=== PATIENT | female | born 1930 | race Caucasian/White ===

== ENCOUNTER → 2017-05-03 | Outpatient (CLI) | payer MEDICARE ==
[~2017-05-03] MED LIST: ASPIRIN DELAYE325 MG PO; ASPIRIN E.C.325 MG PO; ASPIRIN125 MG PO; BACTRIM DS 8001 TA1 PO; CENTRUM SILVER1 TA1 PO; CLOBETASOL0.051 TD; COUMADIN1 MG PO; Coumadin2.5 MG PO; DAYPRO600 M1 PO; DIABETA5 MG PO; DOXY 100100 MG PO; ELIQUIS5 M1 PO; FLUCONAZOLE100 MG PO; GLIMEPIRIDE2 MG PO; HEPARIN5000 UNIT/ SC; HYDROCODONE BIT1 T11 PO; K-TAB20 MEQ PO; KEFLEX500 MG PO; LANTUS SOLOS100 U/M1 SC; LANTUS100 U/ML SC; LASIX40 MG PO; LIDEX 0.05% OIN15 GM T; LIPITOR10 MG PO; LIPITOR40 MG PO; LOTENSIN10 MG PO; LOTENSIN5 MG PO; LUMIGAN 2.5 ML2.5 ML OPH; LUMIGAN50 DRP OPH; Lortab 5/500 501 TAB PO; MAG-OX 400400 MG PO; MEDROL DOSEPAK4 MG PO; MELATONIN5 M1 PO; MELATONIN5 M1 SL; MICRO-K LS20 MEQ PO; MINOCYCLINE100 MG PO; MIRALAX POWDER17 G1 PO; MIRALAX POWDER255 G1 PO; MIRALAX POWDER255 GM PO; NIACINAMIDE500 M1 PO; NIZATIDINE300 MG PO; PEPCID40 MG PO; TRIAMTERENE W/H1 TA1 PO; VICODIN 500 MG-1 TAB PO; VISTARIL25 M1 PO; VISTARIL25 M2 PO; VITAMIN B COMPL1 CAP PO; VITAMIN D1000 IU PO; VITAMIN E400 UNI2 PO; XALATAN 0.005%2.5 ML INTRAOC; XARE15TA PO; [UNRECOGNIZED DRUG - CODE] SC; [UNRECOGNIZED DRUG - OTHER] PO
[2017-05-03 16:34] LABS: BILIRUBIN NEGATIVE (NEGATIVE); BLOOD NEGATIVE (NEGATIVE); CLARITY CLOUDY (CLEAR); COLOR YELLOW (YELLOW); GLUCOSE NEGATIVE (NEGATIVE); KETONE NEGATIVE (NEGATIVE); LEUKO ESTERASE 1+ (NEGATIVE); NITRITE POSITIVE (NEGATIVE); SPECIFIC GRAVITY 1.015 (1.005-1.030); UROBILINOGEN 0.2 E.U./dl (0.2-1.0)
[2017-05-03 16:48] LABS: RBC 0-2 rbc/hpf (0-2); WBC 21-30 wbc/hpf (0-5)
[2017-05-03 16:49] LABS: BACTERIA 4+; EPITHELIAL CELLS 20-25; MUCOUS TRACE
== END | disposition home or self-care (01) ==
LOC: LAB 15:55
PROVIDERS: Family Medicine
DX: N30.90 Cystitis, unspecified without hematuria (principal); E11.9 Type 2 diabetes mellitus without complications; E78.00 Pure hypercholesterolemia, unspecified

== ENCOUNTER 2017-06-25 21:34 | Inpatient (IN) | payer MEDICARE ==
[~2017-06-25] VITALS: Ht 167.6 cm; Wt 74.6 kg
[~2017-06-25 21:34] MED LIST changes: +LANTUS SOL100 UNIT/1 SQ; -LANTUS SOLOS100 U/M1 SC
[2017-06-25 21:40] VITALS: BP 124/36
[2017-06-25 22:13] LABS: BASO % 0.5 % (0.0-1.0); EOS # 0.8 10*3/uL (0.0-0.4); EOS % 9.4 % (1.0-4.0); HEMATOCRIT 33.3 % (37.0-47.0); HEMOGLOBIN 10.4 g/dl (12.0-16.0); LYMPH # 1.3 10*3/uL (1.3-4.4); LYMPH % 14.4 % (27.0-41.0); MEAN CELL VOLUME 103.1 fl (81.0-99.0); MEAN CORPUSCULAR HGB 32.2 pg (27.0-31.0); MEAN CORPUSCULAR HGB CONC 31.2 g/dl (33.0-37.0); MEAN PLATELET VOLUME 9.7 fl (9.6-12.3); MONO # 0.9 10*3/uL (0.1-1.0); MONO % 10.1 % (3.0-9.0); NEUT # 5.7 10*3/uL (2.3-7.9); NEUT % 65.3 % (47.0-73.0); PLATELET COUNT AUTOMATED 222 10*3/uL (130-400); RED BLOOD COUNT 3.23 10*6/uL (4.10-5.10); RED CELL DISTRI WIDTH 13.9 % (0-14.5); WHITE BLOOD COUNT 8.7 10*3/uL (4.8-10.8)
[2017-06-25 22:31] LABS: ALBUMIN 3.3 gm/dl (3.1-4.5); ALKALINE PHOSPHATASE 99 U/L (45-117); BUN 40 mg/dl (7-24); CHLORIDE 104 mmol/L (98-107); CREATININE 1.92 mg/dL (0.55-1.02); POTASSIUM 4.7 mmol/L (3.5-5.1); SGOT/AST 16 IU/L (3-35); SGPT/ALT 17 U/L (12-78); SODIUM 141 mmol/L (136-145); TOTAL PROTEIN 7.2 gm/dL (6.4-8.2); TROPONIN I < 0.015 ng/ml (<0.045)
[2017-06-25 23:03] LABS: BILIRUBIN NEGATIVE (NEGATIVE); BLOOD NEGATIVE (NEGATIVE); CLARITY CLEAR (CLEAR); COLOR YELLOW (YELLOW); GLUCOSE NEGATIVE (NEGATIVE); KETONE NEGATIVE (NEGATIVE); LEUKO ESTERASE NEGATIVE (NEGATIVE); NITRITE NEGATIVE (NEGATIVE); UROBILINOGEN 0.2 E.U./dl (0.2-1.0)
[2017-06-25 23:09] LABS: BACTERIA 1+; RBC 0-2 rbc/hpf (0-2)
--- NOTE | 2017-06-25 23:57 | NUR ---
A 86, admitted to , under the services of ANA Weaver DO with a diagnosis of CELLULITIS. Chief complaint is SWELLING, PAIN AND WOUND LOWER EXTREMITIES. Patient arrived via ambulance from ER. Monitor applied. Initial assessment completed. Vital signs taken and recorded. ANA WEAVER DO notified of admission to the unit. Orders received. See assessment for past medical history, medications and allergies. Patient and/or family oriented to unit. [facility] visitation policy reviewed. Clothing/patient valuable form completed. CHRISTINA COOLEY
[2017-06-26 00:25] VITALS: BP 140/47
[2017-06-26 06:36] LABS: BASO % 0.6 % (0.0-1.0); EOS # 0.7 10*3/uL (0.0-0.4); EOS % 9.3 % (1.0-4.0); HEMATOCRIT 30.4 % (37.0-47.0); HEMOGLOBIN 9.3 g/dl (12.0-16.0); LYMPH # 1.7 10*3/uL (1.3-4.4); LYMPH % 24.3 % (27.0-41.0); MEAN CELL VOLUME 102.4 fl (81.0-99.0); MEAN CORPUSCULAR HGB 31.3 pg (27.0-31.0); MEAN CORPUSCULAR HGB CONC 30.6 g/dl (33.0-37.0); MEAN PLATELET VOLUME 9.8 fl (9.6-12.3); MONO # 0.9 10*3/uL (0.1-1.0); MONO % 12.9 % (3.0-9.0); NEUT # 3.7 10*3/uL (2.3-7.9); NEUT % 52.8 % (47.0-73.0); PLATELET COUNT AUTOMATED 209 10*3/uL (130-400); RED BLOOD COUNT 2.97 10*6/uL (4.10-5.10); WHITE BLOOD COUNT 7.1 10*3/uL (4.8-10.8)
[2017-06-26 07:05] LABS: CREATININE 1.8 mg/dL (0.55-1.02); PHOSPHOROUS 2.9 mg/dL (2.5-4.9); POTASSIUM 4.5 mmol/L (3.5-5.1)
[2017-06-26 07:15] LABS: FREE T4 1.02 ng/dl (0.76-1.46); THYROID STIM HORMONE (HS) 6.9 uIU/ml (0.358-4.75)
[2017-06-26 07:36] LABS: VITAMIN D, 25-HYDROXY 29.2 ng/mL (30-100)
[2017-06-26 08:00] VITALS: BP 135/50
--- NOTE | 2017-06-26 09:00 | NUR ---
Photographic Printer in to talk to patient. Patient states lives at home with . There are few steps in the home. Physician: rafal [facility]acy: [facility] Home health services: none Patient's level of ADLs: MAX ASSIST Patient has working utilities: all working DME: wheelchair, walker, hospital bed and bedside commode Follow-up physician's appointment after d/c: will be made by hospitalist nurse director upon discharge Does patient want to access PORTAL?: no Discharge plan discussed with patient, patient lives at home with her , she stated she uses a wheelchair to get around she uses a walker to transfer to the wheelchair, discussed with her a discharge plan and she stated she would be going back home, discussed with her VNA and she was receptive to this, she stated she had used [facility] in the past and would like them again, transportation planner will make referral to [facility] for when patient is medically stable for discharge. YOUSIF CALVERT
--- NOTE | 2017-06-26 11:10 | NUR ---
WOUND NURSES ON FLOOR. STATED THEY WILL BE SPEAKING TO THE DOCTOR REGARDING ORDERS NEEDED FOR DRESSING CHANGES AND MEDICATION TO PATIENTS BUTTOCKS. AWAITING NEW ORDERS
[2017-06-26 12:00] VITALS: BP 136/43
--- NOTE | 2017-06-26 14:54 | NUR ---
KATHYA MCKEON [id number] Please refer to the physician's history and physical for past medical history, comorbid conditions, and allergies. Diagnosis: CELLULITIS Rubens Score: 16,AT RISK WOUND DESCRIPTIONS: Location of the wound: right lower leg Thickness: Full Size: 3.1cm x 1.5cm 0.2cm Tunneling: none Undermining: none Sinus Tract: none Presence of Exudate: SerouSanguineous Amount: Moderate Color: Yellow Odor: None Periwound Skin Appearance: Normal Wound edges: approximated Pain (associated with wound): patient denied at time of assessment How does patient state this happened? patient states the area was a blister and has been open for approximately 10 days Patient's bilateral upper posterior upper legs dark red in color. These areas yobani at time of assessment. Location of the wound: right heel Type of wound: stage 1 Size: 1cm x 1cm x <0.1 Tunneling: none Undermining: none Sinus Tract: none Presence of Exudate: Amount: None Color: Red Odor: None Periwound Skin Appearance: Normal Wound edges: closed Pain (associated with wound): patient states tender to touch How does patient state this happened? patient is unsure how this happened Surface the patient is resting on: Position Pro SKIN PREVENTION RECOMMENDATION: 1. Pressure redistribution support surface as appropriate 2. Elevate heels 3. Remove boots/TEDS every shift and reapply 4. Head of bed 30 degrees as tolerated 5. Assess nutrition and hydration 6. Manage moisture 7. Avoid the use of containment devices while in bed 8. Use absorptive products on surfaces limit layers of linens on bed 9. Turn and reposition every 1-2 hours in bed and every 1 hour in chair as tolerated 10. Weight shifts every 15 minutes while up in chair 11. Offloading with pillows or device to keep heels elevated off bed 12. Monitor skin at least every shift 13. Inspect under medical devices twice a day WOUND TREATMENT RECOMMENDATIONS: Consult Dr. Cedeno for possible debridement of right lower leg wound Cleanse right lower leg wound with NS. Apply sureprep to periwound and allow to dry and apply therahoney and maxorb and dry dressing. Apply calazime to buttocks daily and PRN. Heel raiser pro boots when in bed. Wheelchair cushion when out of bed.
[2017-06-26 16:31] VITALS: BP 140/68
--- NOTE | 2017-06-26 16:31 | NUR ---
RECHECKED BLOOD PRESSURE SITTING UP ON BSC, SEE VS'S FLOW.
--- NOTE | 2017-06-26 17:17 | NUR ---
LEFT MESSAGE ON DR. CRUZ'S CELL PHONE RE: CONSULT RE: RLE POSSIBLE DEBRIDEMENT.
--- NOTE | 2017-06-26 17:50 | NUR ---
MEDICATED WITH PRN PO TYLENOL FOR BILATERAL SHOULDERS PAIN, APPLIED TOPICAL ANALGESIC BALM, APPLIED HEEL PROTECTORS, AND STARTED PO MIRALAX ORDERED FOR CONSTIPATION.
--- NOTE | 2017-06-26 18:30 | NUR ---
PRN PO TYLENOL EFFECTIVE, PER PATIENT.
[2017-06-26 20:00] VITALS: BP 131/49
--- NOTE | 2017-06-26 20:00 | NUR ---
ASSUMED CARE OF PATIENT. ASSESSMENT COMPLETE. RESTING IN BED. DENIES FURTHER NEEDS AT THIS TIME. CALL LIGHT IN REACH. WILL CONTINUE TO MONITOR.
--- NOTE | 2017-06-26 22:30 | NUR ---
PER PATIENT, EARLIER TYLENOL EFFECTIVE
--- NOTE | 2017-06-26 23:31 | NUR ---
PT DRESSING TO RLE SOILED. DRESSING CHANGED PER ORDER AT THIS TIME.
[2017-06-27] VITALS: BP 144/44
--- NOTE | 2017-06-27 02:00 | NUR ---
SLEEPING. RESP EASY AND NONLABORED ON ROOM AIR. NO DISTRESS NOTED. CALL LIGHT IN REACH. WILL CONTINUE TO MONITOR.
[2017-06-27 06:34] LABS: BASO # 0.1 10*3/uL (0.0-0.1); BASO % 0.7 % (0.0-1.0); EOS # 0.8 10*3/uL (0.0-0.4); EOS % 11.3 % (1.0-4.0); HEMATOCRIT 30.8 % (37.0-47.0); HEMOGLOBIN 9.5 g/dl (12.0-16.0); LYMPH # 1.8 10*3/uL (1.3-4.4); MEAN CELL VOLUME 104.8 fl (81.0-99.0); MEAN CORPUSCULAR HGB 32.3 pg (27.0-31.0); MEAN CORPUSCULAR HGB CONC 30.8 g/dl (33.0-37.0); MEAN PLATELET VOLUME 9.3 fl (9.6-12.3); MONO # 0.9 10*3/uL (0.1-1.0); MONO % 12.9 % (3.0-9.0); NEUT # 3.4 10*3/uL (2.3-7.9); NEUT % 48.8 % (47.0-73.0); PLATELET COUNT AUTOMATED 194 10*3/uL (130-400); RED BLOOD COUNT 2.94 10*6/uL (4.10-5.10); WHITE BLOOD COUNT 6.9 10*3/uL (4.8-10.8)
--- NOTE | 2017-06-27 06:36 | NUR ---
PT DRESSING SOILED, CHANGED PER ORDER
[2017-06-27 06:46] LABS: CREATININE 1.81 mg/dL (0.55-1.02); POTASSIUM 4.4 mmol/L (3.5-5.1)
--- NOTE | 2017-06-27 06:58 | NUR ---
1 AMP D5W GIVEN PER ORDER FOR BS 43
--- NOTE | 2017-06-27 07:56 | NUR ---
Received message to [facility] Faxed referral to [facility], will need PT and OT eval for precert. waiting on acceptance, PT and OT evals.
[2017-06-27 08:00] VITALS: BP 140/48
--- NOTE | 2017-06-27 09:07 | NUR ---
PHYSICAL THERAPY PAtient evaluated on 4, full evaluation to follow. Continue with PT as per plan of care with fall and acute debility precautions. May require SNF for impaired mobility in order to return to home at [facility]. PAtient is moderate complexity via chart review, tests and evaluation: [id number]. Thank you for this referral. Kenya Campuzano,PT
--- NOTE | 2017-06-27 09:14 | NUR ---
Occupational Therapy evaluation completed this date on 4 with full eval to follow. Precautions include IV LUE, BLE cellulitis, fall risk. Recommend OT per POC, SNF upon d/c to enable safe return home at improved level of ADLs and safety. Thank you for this referral. Varsha Díaz OTR/l
[2017-06-27] MEDS ORDERED: LOTENSIN20 MG PO (09:29)
[2017-06-27 12:00] VITALS: BP 131/47
--- NOTE | 2017-06-27 12:26 | NUR ---
PHYSICAL THERAPY Mrs Villalba seen this PM 1:1 for her therapy session. Transfer supine/sit making Elis work with MIN A X 1, sitting balance once up supervision X 1. SIt/stand MAX A X 1, up standing with wheeled walker MIN A X 1. Gait total 42' X 1, MIN PAPER COLORER X 1, with W/W with verbal cueing for gait, walker safety. Pt back supine MOD A X 1. After short rest act Ex to bilateral LE of SLR, quad sets, anklke pumps with cueing for each Ex X 15 reps each and Elis knows she is weak in bilateral LE. Said that she will be working more on them. CAROLE CROFT BRAND COORDINATOR.
[2017-06-27 16:00] VITALS: BP 137/40
[2017-06-27 20:00] VITALS: BP 145/48
--- NOTE | 2017-06-27 20:25 | NUR ---
UP WITH ASSISTANCE TO BSC.
--- NOTE | 2017-06-27 22:00 | NUR ---
BLOOD SUGAR 107; NO COVERAGE REQUIRED.
[2017-06-28] VITALS: BP 154/48
[2017-06-28 05:55] LABS: CREATININE 1.75 mg/dL (0.55-1.02); POTASSIUM 4.5 mmol/L (3.5-5.1)
[2017-06-28 05:57] LABS: VANCOMYCIN TROUGH 12.3 ug/mL (10-20)
[2017-06-28 08:00] VITALS: BP 132/40
--- NOTE | 2017-06-28 11:02 | NUR ---
PHYSICAL THERAPY Pt seen 1:1 for her therapy session this AM. Transfer SIT/STAND from bedside to W/W requiring MOD A x 1 and verbal cues for proper hand and foot placement upon standing. Pt performed transfer to bedside commode using W/W and Min A x 1. Gait 40'x1 using W/W and CGA for safety. B LE ther ex; SLR, quad sets, marches, ankle pumps x 15 each. Pt required cueing for proper sequence during exercise. Pt was left seated with call light in reach and registered nursing professor present. Cheryl Velásquez, PAPERBOARD MACHINE OPERATOR
--- NOTE | 2017-06-28 15:53 | NUR ---
OT DAILY NOTE PT SEENTHIS DATE FOR 33 MINUTES OF OT. PT WAS SITTING IN CHAIR BESIDE BED WHEN FRIAS ENTERED THE ROOM. C/O PAIN IN L SHOULDER AND RLE, BUT AGREED TO PARTICIPATE. FRIAS REVIEWED HAND OUT WITH PATIENT ON EC/WS AND PATIENT REPORTED DOING MOST OF THE SUGGESTIONS ALREADY. PT HAS DME AND AE AT HOME SUCH RIGHT OF WAY APPRAISER, SOCK AID AND TUB CHAIR. FRIAS ACILITATED BUE STRENGTHENING EXERCISES IN ALL PLANES TOLERATED WITH MED RESISTANCE TBAND 10X EACH WITH MIN ASSIST FOR CORRECT FORM AND TECHNIQUE FOR PATIENT TO ACHEIVE MAXIMUM BENEFIT. FAIR TOLERANCE, VERBAL CUES FOR BREATHING. STS X 3 TRIALS FROM CHAIR WITH ARMS AT MAX A WITH PATIENT UNABLE TO STAND ALL OF THE WAY UP. STS FROM CHAIR WITH MOD A X 2 AT FWW. FUNCTIONAL MOBILITY HTORUGH OUT ROOM AND HALLWAY WITH FWW AT [facility]. PT RETURNED TO SIT AT EOB WITH VERBAL CUES FOR HAND PLACEMENT TO SIT. PT SAT AT EOB WITH CALL LIGHT WITH IN REACH. CONTINUE CURRENT OT PLAN OF CARE. KEON AUSTIN, ALTAGRACIA/Robyn
[2017-06-28 16:00] VITALS: BP 151/54
[2017-06-28 20:00] VITALS: BP 148/56
--- NOTE | 2017-06-28 20:20 | NUR ---
PT. IS CURRENTLY RESTING IN BED AT THIS TIME. NO DISTRESS NOTED AND PT. DOES NOT VERBALIZE ANY C/O AT THIS TIME. HOB IS ELEVATED, CALL LIGHT WITHIN REACH, BED IS LOW AND WHEELS ARE LOCKED. SEE SHIFT ASSESSMENT.
--- NOTE | 2017-06-28 21:28 | NUR ---
PT. MEDICATED WITH TYLENOL FOR A HEADACHE RATING PAIN A 5/10. WILL MONITOR EFFECT.
--- NOTE | 2017-06-28 22:00 | NUR ---
PRN TYLENOL SEEMS EFFECTIVE, PT. IS SLEEPING COMFORTABLY WITH NO DISTRESS NOTED. CALL LIGHT IS WITHIN REACH.
[2017-06-29] VITALS: BP 122/52
--- NOTE | 2017-06-29 07:56 | NUR ---
ASSESSMENT DONE - PER THE PATIENT SHE STILL HAS NOT MOVED HER BOWELS & SHE WOULD LIKE ANOTHER DULCOLAX TABLET.
[2017-06-29 08:00] VITALS: BP 130/70
--- NOTE | 2017-06-29 08:01 | NUR ---
Shift chart check completed.
[2017-06-29 09:27] LABS: CREATININE 1.66 mg/dL (0.55-1.02); POTASSIUM 4.4 mmol/L (3.5-5.1)
--- NOTE | 2017-06-29 09:42 | NUR ---
PHYSICAL THERAPY Elis was seen this AM 1:1 for her therapy session and is improving. Transfer supine/sit MOD A X 1, sitting balance once up independent. Sit/stand and up on wheeled walker with bed elevated to transfer up into stand MOD A X 1. Gait total 55' X 2, MOD DENTAL HYGIENIST X 1, with cueing for gait, walker, turn and distance safety. Pt back sitting at bedside to rest a little SOB with this. End with act SLR, quad sets, ankle pumps, and working more with her act quad sets to get to independent transfers. CAROLE CROFT FREELANCE DATA ENTRY.
--- NOTE | 2017-06-29 10:04 | NUR ---
PATIENT SEEN 1:1 OT THIS DATE 38 MINUTES. PATIENT IDENTIFIED BY NAME AND DATE OF . PATIENT COMPLETED SUPINE TO SIT EOB MODA A WITH EDUCATION USE RAIL AND LOG ROLL TECHNIQUE FOR INCREASE SAFETY AND INDEPENDENCE. PATIENT COMPLETED GROOMING SIT EOB GOOD SIT BALANCE BRUSH DENTURES, COMB HAIR, AND APPLE MAKE UP MOD A SECONDARY ROM LIMITATIONS AND C/O SORENESS LEFT ARM IV SITE. PATIENT COMPLETED SIT TO STAND FROM BED MIN A RAISED AND PIVOTING USE FWW TO BEDSIDE COMMODE MIN A WITH VERBAL CUE SAFETY. PATIENT COMPLETED LB DRESSING DEP CHRISTA NONSLIP SOCKS AND MAX A CHRISTA UNDERPANTS WITH EDUCATION AE FOR INCREASE I WITH TASK. PATIENT COMPLETED TOILETING MOD A AND SIT TO STAND FORM BEDSIDE COMMODE MAX A. COMPLETED PIVOT USE FWW TO BED MIN A. PATIENT COMPLETED SIT TO SUPINE MOD A WITH VERBAL CUES SAFETY. PATIENT CALL LIGHT WITHIN REACH. ALEKSANDRA SOUTH
[2017-06-29] MEDS ORDERED: VITAMIN D400 UNI1 PO (10:27)
--- NOTE | 2017-06-29 10:27 | NUR ---
MED REC REVIEWED WITH THE PATIENT. UPDATED
--- NOTE | 2017-06-29 10:28 | NUR ---
DR MUNIZ & DR CORADO HERE.
--- NOTE | 2017-06-29 11:53 | NUR ---
DRESSING TO RLL CHANGED
[2017-06-29 12:00] VITALS: BP 140/53
[2017-06-29 16:00] VITALS: BP 148/58
--- NOTE | 2017-06-29 19:30 | NUR ---
PT. IS CURRENTLY RESTING IN BED AT THIS TIME. PT. DOES NOT EXPRESS ANY CONCERNS OR COMPLAINTS AND NO DISTRESS IS NOTED. HOB IS ELEVATED, CALL LIGHT IS WITHIN REACH, WHEELS ARE LOCKED AND BED IS IN LOWEST POSITION. DRESSING IS DRY AND INTACT. SEE SHIFT ASSESSMENT.
[2017-06-29 20:00] VITALS: BP 138/45
--- NOTE | 2017-06-29 22:00 | NUR ---
NEW IV STARTED IN PT. LEFT HAND, AFTER 1 UNSUCCESSFUL ATTEMPT. PT. TOLERATED WELL. IV IN RAN STILL IN AND PATENT.
[2017-06-30] VITALS: BP 123/45
--- NOTE | 2017-06-30 00:39 | NUR ---
PRN TYLENOL GIVEN PER PT. REQUEST FOR C/O HEADACHE. CALL LIGHT IS WITHIN REACH AND WILL CONTINUE TO MONITOR.
--- NOTE | 2017-06-30 01:00 | NUR ---
PRN TYLENOL SEEMS TO BE EFFECTIVE, PT. IS SLEEPING COMFORTABLY WITH EASY AND REGULAR RESPERS. CALL LIGHT IS WITHIN REACH.
[2017-06-30 05:29] LABS: CREATININE 1.63 mg/dL (0.55-1.02)
[2017-06-30 06:02] LABS: BASO # 0.1 10*3/uL (0.0-0.1); BASO % 1.1 % (0.0-1.0); EOS # 0.8 10*3/uL (0.0-0.4); EOS % 12.1 % (1.0-4.0); HEMATOCRIT 30.5 % (37.0-47.0); HEMOGLOBIN 9.4 g/dl (12.0-16.0); LYMPH # 1.5 10*3/uL (1.3-4.4); LYMPH % 22.4 % (27.0-41.0); MEAN CELL VOLUME 105.2 fl (81.0-99.0); MEAN CORPUSCULAR HGB 32.4 pg (27.0-31.0); MEAN CORPUSCULAR HGB CONC 30.8 g/dl (33.0-37.0); MEAN PLATELET VOLUME 9.9 fl (9.6-12.3); MONO # 0.9 10*3/uL (0.1-1.0); MONO % 14.2 % (3.0-9.0); NEUT # 3.2 10*3/uL (2.3-7.9); PLATELET COUNT AUTOMATED 218 10*3/uL (130-400); RED CELL DISTRI WIDTH 14.1 % (0-14.5); WHITE BLOOD COUNT 6.5 10*3/uL (4.8-10.8)
--- NOTE | 2017-06-30 06:12 | NUR ---
PRN TYLENOL GIVEN PER PT. REQUEST FOR HEADACHE, WILL MONITOR EFFECT.
--- NOTE | 2017-06-30 06:59 | NUR ---
PRN TYLENOL SEEMS TO BE EFFECTIVE, PT. IS SLEEPING COMFORTABLY WITH EASY AND REGULAR RESPERS. CALL LIGHT IS WITHIN REACH.
[2017-06-30 08:00] VITALS: BP 126/51
[2017-06-30 12:00] VITALS: BP 124/54
--- NOTE | 2017-06-30 14:15 | NUR ---
PHYSICAL THERAPY PT SEEN 1:1 FOR HER THERAPY SESSION THIS PM. PT WAS SEATED AT BEDSIDE WITH JAVA J2EE APPLICATION DEVELOPER PRESENT. B LE THER EX; MARCHES, LAQ'S, ANKLE PUMPS, SAQ'S X 20 EACH. CUES WERE GIVEN FOR PROPER FORM AND FOLLOW THROUGH DURING EX. PT STATED SHE ALREADY TOOK A WALK RECENTLY BEFORE THERAPY SESSION AND DID NOT WANT TO WALK ONCE MORE. PT LEFT SUPINE IN BED WITH CALL LIGHT WITHIN REACH. JEAN PIERRE MACIEL, STRAP MAKER
[2017-06-30 16:00] VITALS: BP 120/55
[2017-06-30 20:00] VITALS: BP 124/50
--- NOTE | 2017-06-30 20:21 | NUR ---
PATIENT GIVEN TYLENOL PER PT REQUEST FOR HEADACHE RATE 6/10 IN THE ENTIRE HEAD A CONSTANT ACHE. WILL CONTINUE TO MONITOR AND REASSESS.
--- NOTE | 2017-06-30 20:51 | NUR ---
PATIENT RESTING COMFORTABLY IN BED. PATIENT DENIES ANY SOB OR DISCOMFORT. PATIENT STATES HAVING A HEADACHE. PATIENT IS ABLE TO AMBULATE WITH ASSIST. CALL LIGHT IS WITHIN REACH. SEE ASSESSMENT.
--- NOTE | 2017-06-30 21:30 | NUR ---
PAIN MEDICATION WAS EFFECTIVE FOR HEADACHE PAIN. PATIENT DENIES HAVING A HEADACHE ANYMORE AND IS RESTING COMFORTABLY IN BED. CALL LIGHT WITHIN REACH.
[2017-07-01] VITALS: BP 136/64
[2017-07-01 08:00] VITALS: BP 145/50
--- NOTE | 2017-07-01 08:00 | NUR ---
Shift chart check completed.
[2017-07-01 12:00] VITALS: BP 143/52
[2017-07-01 16:00] VITALS: BP 152/54
[2017-07-01 20:00] VITALS: BP 117/39
--- NOTE | 2017-07-01 22:00 | NUR ---
PATIENT MEDICATED WITH TYLENOL FOR C/O HEADACHE. SEE EMAR. REINFORCED USE OF CALL LIGHT
[2017-07-02] VITALS: BP 109/39
--- NOTE | 2017-07-02 07:05 | NUR ---
Shift chart check completed.
[2017-07-02 08:00] VITALS: BP 137/44
--- NOTE | 2017-07-02 09:09 | NUR ---
PHYSICAL THERAPY Elis seen this AM 1:1 for her physical therapy session and said that she was doing her Ex over the weekend. Pt had IV Pole this gait. Transfer supine/sit MIN A X 1, sitting balance once up supervision x 1, Sit/stand with bed elevated to help with sit to stand MOD A X 1, standing balance once up MIN A X 1. Gait with W/W 70' X 2, MOD TONGUER X 1, with cueing for gait, walker, turn safety one standing rest and just a little SOB after back supine in bed. After short rest act EX to LE of heel slides, SLR, quad sets and ankle pumps X 25 reps each and is improving. Pt with call light and no new complaint. CAROLE CROFT LIVING SUPERVISOR.
--- NOTE | 2017-07-02 09:36 | NUR ---
PATIENT C/O CONSTIPATION, PRN DULCOLAX GIVEN AT THIS TIME. WILL MONITOR FOR EFFECTIVENESS. CALL LIGHT WITHIN REACH.
--- NOTE | 2017-07-02 10:50 | NUR ---
PATIENT SEEN 1:1 30 MINUTES OT THIS DATE. PATIENT IDENTIFIED BY NAME AND DATE OF . PATIENT IN BED UPON ARRIVAL THIS IV. PATIENT COMPLETED SUPINE TO SIT EOB MOD A USE RAIL. COMPLETED UB DRESS DON/DOFF GOWN MOD A SEATED EOB WITH VERBAL CUES TECHNIQUE. DONNED B NON SLIPSOCKS DEPENDENT THIS DATE SECONDARY UNABLE TO REACH WITH EDUCATION SOCK AIDE WITH PATIENT VERBALIZING BENEFITS OF USE AE FOR INCREASE INDEPENDENCE. PATIENT COMPLETED GROOMING TASK MIN A SEATED EOB SECONDARY LIMITED ROM BUE. COMPLETED SIT TO STAND FROM RAISED BED MIN A WITH VERBAL CUES PROPER HAND PLACEMENT. PATIENT COMPLETED STAND TOLERANCE USE FWW SUPPORT 4 MINUTES CGA WITH C/O FATIGUE. PATIENT COMPLETED SIT TO SUPINE BED MOD A WITH VERBAL CUES TECHNIQUE .CALL LIGHT WITHIN REACH THIS DATE. ALEKSANDRA SOUTH
--- NOTE | 2017-07-02 11:01 | NUR ---
Patient updates faxed to [facility] for precert. Waiting on auth.
--- NOTE | 2017-07-02 11:40 | NUR ---
WASHED PATIENTS LOWER LEGS AND APPLIED LOTION TO DRY SKIN. DRESSING ON LEFT MICHELLE INTACT
[2017-07-02 12:00] VITALS: BP 158/55
--- NOTE | 2017-07-02 13:41 | NUR ---
PHYSICAL THERAPY Elis seen this PM 1:1 and is improving with her therapy. Transfer supine/sit MIN A X 1, and making Elis work for it. Sitting balance supervision X 1, X 5 min. Sit/stand and up on wheeled walker, standing with her bed slevated to help stand but this is improving from sit to stand. Gait total 80' X 2, cueing for gait and turn safety no LOB with this. Elis wanting to go back to bed after this, Back supine MOD A X 1, pt with call light and her phone. CAROLE CROFT HORSE EXERCISER.
--- NOTE | 2017-07-02 14:54 | NUR ---
PATIENT GIVEN TYLENOL PER PRN ORDERS FOR C/O HEADACHE. WILL MONITOR FOR EFFECTIVENESS. CALL LIGHT IN REACH.
[2017-07-02 16:00] VITALS: BP 159/65
--- NOTE | 2017-07-02 16:15 | NUR ---
PATIENT STATES TYLENOL EFFECTIVE AT THIS TIME.
--- NOTE | 2017-07-02 19:30 | NUR ---
ASSUMED CARE OF PT AT THIS TIME, RESPS EASY AND NONLABORED WITH NO S/S OF DISTRESS CALL LIGHT WITH IN REACH
[2017-07-02 20:00] VITALS: BP 116/43
--- NOTE | 2017-07-02 21:15 | NUR ---
PT REFUSED MIRALX AT THIS TIME, EDUCATION INEFFECTIVE, PT STATES THAT SHE HAD A BM TODAY AND FEELS SHE DOES NOT NEED, PT C/O TROUBLE SLEEPING AND REQUESTED MEDICATION, ADMINISTERED RESTORIL 15MG PO PRN PER ORDERS, WILL MONITOR EFFECTS, CALL LIGHT WITH IN REACH
--- NOTE | 2017-07-02 22:15 | NUR ---
PRN RESTORIL EFFECTIVE, PT RESTING IN BED AT THIS TIME, WITH EYES CLOSED RESPS EASY AND NONLABORED WITH CALL LIGHT WITH IN REACH
[2017-07-03] VITALS: BP 149/39
--- NOTE | 2017-07-03 03:07 | NUR ---
RESTING IN BED WITH EYES CLOSED RESPS EASY AND NONLABORED WITH NO S/S OF DISTRESS CALL LIGHT WITH IN REACH
[2017-07-03 05:59] LABS: BASO % 0.6 % (0.0-1.0); EOS # 0.9 10*3/uL (0.0-0.4); EOS % 14.4 % (1.0-4.0); HEMATOCRIT 28.7 % (37.0-47.0); HEMOGLOBIN 8.9 g/dl (12.0-16.0); LYMPH # 1.4 10*3/uL (1.3-4.4); LYMPH % 21.4 % (27.0-41.0); MEAN CELL VOLUME 104.7 fl (81.0-99.0); MEAN CORPUSCULAR HGB 32.5 pg (27.0-31.0); MEAN PLATELET VOLUME 9.9 fl (9.6-12.3); MONO # 0.8 10*3/uL (0.1-1.0); MONO % 12.6 % (3.0-9.0); NEUT # 3.3 10*3/uL (2.3-7.9); NEUT % 50.5 % (47.0-73.0); PLATELET COUNT AUTOMATED 208 10*3/uL (130-400); RED BLOOD COUNT 2.74 10*6/uL (4.10-5.10); RED CELL DISTRI WIDTH 14.5 % (0-14.5); WHITE BLOOD COUNT 6.4 10*3/uL (4.8-10.8)
[2017-07-03 06:05] LABS: CREATININE 1.44 mg/dL (0.55-1.02)
[2017-07-03 08:00] VITALS: BP 148/41
--- NOTE | 2017-07-03 08:00 | NUR ---
PATIENT IS AWAKE AND ORIENTED. WAS VERY PLEASENT
--- NOTE | 2017-07-03 08:00 | NUR ---
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 FANTASMA NAIK. SPNRCC
--- NOTE | 2017-07-03 08:20 | NUR ---
PT RESTING IN BED, NO DISTRESS NOTED. LUNG SOUNDS DIMINISHED, BUT CLEAR. PT ON ROOM AIR, DENIES ANY SOB, PT DOES STATE A NON-PRODUCTIVE COUGH. BS X4 QUADS, DENIES N/V/D-STATES BM 07/02. HRR, TRACE EDEMA NOTED, BLE EXTREMITIES FLAKY, DRESSING TO RIGHT MICHELLE DRY & INTACT. PT DOES STATE SOME INTERMITTENT PAIN TO RIGHT MICHELLE AND HAVING A MILD HEADACHE AND REQUESTING TYLENOL. CALL LIGHT WITHIN REACH.
--- NOTE | 2017-07-03 10:05 | NUR ---
PHYSICAL THERAPY Elis seen this AM 1:1 for her therapy session and having her breathing treatment at this time, will stop back. When i stopped back Elis having her breakfast. CAROLE CROFT WIRE HANGER.
--- NOTE | 2017-07-03 10:07 | NUR ---
PHYSICAL THERAPY Back this AM to treat Elis. Transfer supine/sit CGA X 1, and improving with this, sitting balance once up supervision X 1. Sit/stand and up on wheeled walker MOD A X 1, with her bed elevated. Gait total 90' X 2, MOD CERTIFIED ENERGY MANAGER X 1, verbal cueing for gait, walker, turn safety with one standing rest due to C/O left shoulder pain and a little SOB with this. Pt back supine in bed, after short rest went over act EX of quad sets, ankle pumps, SLR, heel slides, Pt with call light and phone. CAROLE CROFT DIRECTOR MICROBIOLOGY.
--- NOTE | 2017-07-03 10:15 | NUR ---
PATIENT PAIN WAS AT A 5 AT 0900, TYLENOL GIVE AND PAIN REASSED AT 0945 AND PATIENT WAS PAIN FREE.
[2017-07-03 11:57] VITALS: BP 122/35
--- NOTE | 2017-07-03 12:00 | NUR ---
PATIENT SITTING UP COMFORTABLY IN BED WATCHING TV, ASSISTED PATIENT WITH LEG REPOSITIONING, PATIENT TOLERATED WELL, NO COMPLAINTS OF PAIN AT THIS TIME. SEAN NAIK. SPNRCC
--- NOTE | 2017-07-03 12:18 | NUR ---
Patient accepted to [facility], still waiting on precert.
--- NOTE | 2017-07-03 13:00 | NUR ---
WOUND CARE PERFORMED AT THIS TIME PER ORDER. PT TOLERATED WELL.
--- NOTE | 2017-07-03 13:24 | NUR ---
PATIENT SEEN 1:1 OT THIS DATE. PATIENT IDENTIFIED BY NAME AND DATE OF .PATIENT REPORTS SHOULDERS FEEL BETTER TODAY.PATIENT COMPLETED BUE AROM IN SUPINE/ GRAVITY ELMINATION INCLUDED BUE SHOULDER AROM FLEX/EXT, ABD/ADD, INT/EXT ROTATION, SCAPULAR RETRACT/PROTRACT, HORIZONTAL ABD/ADD, ELBOW FLEX/EXT ALL 2 SETS X 10 REPS WITH VERBAL CUES TECHNIQUE AND FORM. PATIENT TRAY ARRIVED THIS DATE. PATIENT WITH CALL LIGHT IN PLACE. NO FURTHER NEEDS VERBALIZED. ALEKSANDRA FRIAS/Robyn
--- NOTE | 2017-07-03 13:30 | NUR ---
ATTEMPTED TO RESTART AN IV FOR PT, HER SITE IS OUTDATED, PT STATES SHE THOUGHT SHE WOULD BE LEAVING AND WOULD RATHER NOT HAVE ONE STARTED AT THIS TIME.
--- NOTE | 2017-07-03 13:59 | NUR ---
REPORT WAS GIVEN TO KRZYSZTOF NAIK, ROBERCC
--- NOTE | 2017-07-03 15:59 | NUR ---
PATIENT RESTING COMFORTABLY IN THE BED. PATIENT SAYS THEY HAVE A SLIGHT HEADACHE IN THE FRONT OF THEIR HEAD. PATIENT DENIES ANY OTHER DISCOMFORT OR PAIN AT THIS TIME. PATIENT IS AMBULATORY WITH ASSIST. PATIENT IS NON-MONITORED, HOB ELEVATED, HEELS ELEVATED, PATIENT POSITIONED FOR COMFORT. CALL LIGHT WITHIN REACH. SEE ASSESSMENT.
[2017-07-03 16:00] VITALS: BP 141/63
--- NOTE | 2017-07-03 16:10 | NUR ---
PATIENT GIVEN TYLENOL PER PATIENT REQUEST FOR HEADACHE PAIN RATED A 5/10 AND THE PAIN IS DESCRIBED A DULL ACHE. WILL CONTINUE TO MONITOR AND REASSESS.
--- NOTE | 2017-07-03 19:00 | NUR ---
PATIENT IS RESTING IN BED. PATIENT DENIES ANY PAIN, DISCOMFORT, OR SOB UPON ASSESSMENT. PATIENT HAS WOUNDS ON THE LEFT LOWER MICHELLE AND BUTTOCKS THAT HAVE BEEN DRESSED EARLIER TODAY. PATIENT IS A&OX3 AND NON-MONITORED. PATIENT CAN AMBULATE WITH ASSIST. CALL LIGHT WITHIN REACH. SEE ASSESSMENT.
[2017-07-03 20:00] VITALS: BP 139/53
[2017-07-04] VITALS: BP 139/37
--- NOTE | 2017-07-04 03:07 | NUR ---
PT RESTING IN BED WITH EYES CLOSED RESPS EASY AND NONLABORED WITH NO S/S OF DISTRESS CALL LIGHT WITH IN REACH
--- NOTE | 2017-07-04 06:08 | NUR ---
C/O H/A REQUESTED AND ADMISNISTERED TYLENOL 650MG PO PRN PER ORDERS WILL MONITOR EFFECTS
[2017-07-04 08:00] VITALS: BP 136/40
--- NOTE | 2017-07-04 09:49 | NUR ---
PHYSICAL THERAPY Elis seen this AM for her therapy but having her breakfast, then nursing in will stop back later. CAROLE CROFT CASE COORDINATOR.
--- NOTE | 2017-07-04 11:24 | NUR ---
Received authorization for patient to go to [facility], can be discharged if medically stable.
[2017-07-04 12:00] VITALS: BP 140/54
[2017-07-04] MEDS ORDERED: ANALGESIC BALM28 GM T (12:43)
[2017-07-04] MEDS ORDERED: Insulin Lispro, Reco SC (12:43)
[2017-07-04] MEDS ORDERED: K-TAB20 MEQ PO (12:43)
[2017-07-04] MEDS ORDERED: DUONEB 3 MG/3 ML3 M1 NEB (12:43)
--- NOTE | 2017-07-04 12:56 | NUR ---
TREY ARRANGED FOR TRANSPORTATION TO [facility] WITH [employer] FOR SUPERVISING EDITOR TRAILER AT 3P.M. TREY NOTIFIED [employer]YE HAND OF PROVIDER AND TIME OF SUPERVISING EDITOR TRAILER.
--- NOTE | 2017-07-04 15:21 | NUR ---
FLU AND PNEUMONIA VACCINES GIVEN ON DISCHARGE.
--- NOTE | 2017-07-04 15:22 | NUR ---
DISCHARGE PHOTOS TAKEN OF RIGHT MICHELLE WOUND AND STAGE 1 TO R BUTTOCK.
--- NOTE | 2017-07-04 15:38 | NUR ---
NURSE TO NURSE REPORT GIVEN TO ALBERT AT [facility].
--- NOTE | 2017-07-04 15:50 | NUR ---
Discharge instructions reviewed with patient/family. Patient receptive and verbalizes understanding. Follow-up care arranged. Written instructions given to patient/family. DARLEEN YORK
--- NOTE | 2017-07-05 09:11 | NUR ---
PHYSICAL THERAPY CO-SIGN I approve of the Phyical Therapy notes written above. ANNAMARIA CRUZ PT
--- NOTE | 2017-07-05 12:02 | NUR ---
OCCUPATIONAL THERAPY CO-SIGN I approve of the Occupational Therapy notes written above. JOSE M JOSHUA OTR/Robyn
== END 2017-07-04 15:50 | disposition other institution (70) | DRG 603 ==
LOC: ED 21:34 → EDHOLD 23:22 → 4E 23:22
PROVIDERS: Internal Medicine; Nurse Practitioner Family; Student in an Organized Health Care Education/Training Program; ADMIT Internal Medicine
DX: L03.115 Cellulitis of right lower limb (principal); L89.319 Pressure ulcer of right buttock, unspecified stage; E11.22 Type 2 diabetes mellitus with diabetic chronic kidney disease; E11.65 Type 2 diabetes mellitus with hyperglycemia; D72.1 Eosinophilia; N18.4 Chronic kidney disease, stage 4 (severe); D53.9 Nutritional anemia, unspecified; E44.1 Mild protein-calorie malnutrition; I12.9 Hypertensive chronic kidney disease with stage 1 through stage 4 chronic kidney disease, or unspecified chronic kidney disease; Z79.4 Long term (current) use of insulin; H40.9 Unspecified glaucoma; E78.5 Hyperlipidemia, unspecified; E66.01 Morbid (severe) obesity due to excess calories; M15.9 Polyosteoarthritis, unspecified; Z96.653 Presence of artificial knee joint, bilateral; D72.821 Monocytosis (symptomatic); Z86.718 Personal history of other venous thrombosis and embolism; Z88.0 Allergy status to penicillin; Z91.048 Other nonmedicinal substance allergy status; Z79.899 Other long term (current) drug therapy; Z79.82 Long term (current) use of aspirin; Z90.49 Acquired absence of other specified parts of digestive tract; Z98.49 Cataract extraction status, unspecified eye; Z82.49 Family history of ischemic heart disease and other diseases of the circulatory system; Z82.5 Family history of asthma and other chronic lower respiratory diseases; Z80.9 Family history of malignant neoplasm, unspecified; Z68.26 Body mass index [BMI] 26.0-26.9, adult

== ENCOUNTER 2017-10-07 09:13 | Inpatient (IN) | payer MEDICARE ==
[~2017-10-07] VITALS: Ht 167.6 cm; Wt 116.1 kg
[2017-10-07 09:13] VITALS: BP 170/46
[~2017-10-07 09:13] MED LIST changes: +ANALGESIC BALM28 GM T; +DUONEB 3 MG/3 ML3 M1 NEB; +Insulin Lispro, Reco SC; +LOTENSIN20 MG PO; +VITAMIN D400 UNI1 PO
[2017-10-07] MEDS ORDERED: LOTENSIN20 MG PO (09:30)
[2017-10-07] MEDS ORDERED: KLOR-CON M2020 ME1 PO (09:31)
[2017-10-07] MEDS ORDERED: ASPIRIN325 MG PO (09:33)
[2017-10-07] MEDS ORDERED: LANTUS SOL100 UNIT/1 SC (09:34)
[2017-10-07 09:35] LABS: BASO % 0.6 % (0.0-1.0); EOS # 0.4 10*3/uL (0.0-0.4); EOS % 5.9 % (1.0-4.0); HEMATOCRIT 39.8 % (37.0-47.0); HEMOGLOBIN 11.7 g/dl (12.0-16.0); LYMPH # 1.5 10*3/uL (1.3-4.4); MEAN CELL VOLUME 102.1 fl (81.0-99.0); MEAN CORPUSCULAR HGB CONC 29.4 g/dl (33.0-37.0); MEAN PLATELET VOLUME 9.3 fl (9.6-12.3); MONO # 0.8 10*3/uL (0.1-1.0); MONO % 11.3 % (3.0-9.0); NEUT # 4.5 10*3/uL (2.3-7.9); NEUT % 61.8 % (47.0-73.0); PLATELET COUNT AUTOMATED 212 10*3/uL (130-400); RED CELL DISTRI WIDTH 14.3 % (0-14.5); WHITE BLOOD COUNT 7.3 10*3/uL (4.8-10.8)
[2017-10-07] MEDS ORDERED: NIZATIDINE PO (09:35)
[2017-10-07 09:43] LABS: ACT PARTIAL THROMBO TIME 21.5 SECONDS (20.8-31.5)
[2017-10-07 09:51] LABS: ALBUMIN 3.5 gm/dl (3.1-4.5); ALKALINE PHOSPHATASE 119 U/L (45-117); BUN 40 mg/dl (7-24); CHLORIDE 106 mmol/L (98-107); CREATININE 1.22 mg/dL (0.55-1.02); LIPASE 607 U/L (73-393); POTASSIUM 4.8 mmol/L (3.5-5.1); SGOT/AST 14 IU/L (3-35); SGPT/ALT 18 U/L (12-78); SODIUM 139 mmol/L (136-145); TOTAL PROTEIN 7.4 gm/dL (6.4-8.2)
[2017-10-07 09:53] LABS: TROPONIN I < 0.015 ng/ml (<0.045)
[2017-10-07 09:59] VITALS: BP 169/62
[2017-10-07 10:28] LABS: BILIRUBIN NEGATIVE (NEGATIVE); BLOOD TRACE-INTACT (NEGATIVE); CLARITY SL CLOUDY (CLEAR); COLOR YELLOW (YELLOW); GLUCOSE NEGATIVE (NEGATIVE); KETONE NEGATIVE (NEGATIVE); LEUKO ESTERASE NEGATIVE (NEGATIVE); NITRITE NEGATIVE (NEGATIVE); SPECIFIC GRAVITY 1.025 (1.005-1.030); UROBILINOGEN 0.2 E.U./dl (0.2-1.0)
[2017-10-07 10:38] LABS: BACTERIA TRACE; RBC 0-2 rbc/hpf (0-2); WBC 0-2 wbc/hpf (0-5)
[2017-10-07 11:22] VITALS: BP 161/57; BP 166/52
[2017-10-07 13:30] VITALS: BP 118/43
[2017-10-07 16:00] VITALS: BP 123/44
[2017-10-07 20:00] VITALS: BP 128/46
[2017-10-08] VITALS: BP 126/56
[2017-10-08 06:38] LABS: BASO # 0.1 10*3/uL (0.0-0.1); BASO % 0.6 % (0.0-1.0); EOS # 0.5 10*3/uL (0.0-0.4); EOS % 6.2 % (1.0-4.0); HEMATOCRIT 39.2 % (37.0-47.0); HEMOGLOBIN 11.5 g/dl (12.0-16.0); LYMPH # 1.6 10*3/uL (1.3-4.4); LYMPH % 19.3 % (27.0-41.0); MEAN CELL VOLUME 104.3 fl (81.0-99.0); MEAN CORPUSCULAR HGB 30.6 pg (27.0-31.0); MEAN CORPUSCULAR HGB CONC 29.3 g/dl (33.0-37.0); MONO # 0.8 10*3/uL (0.1-1.0); MONO % 9.7 % (3.0-9.0); NEUT # 5.3 10*3/uL (2.3-7.9); PLATELET COUNT AUTOMATED 180 10*3/uL (130-400); RED BLOOD COUNT 3.76 10*6/uL (4.10-5.10); RED CELL DISTRI WIDTH 14.5 % (0-14.5); WHITE BLOOD COUNT 8.2 10*3/uL (4.8-10.8)
[2017-10-08 07:19] LABS: ALBUMIN 3.3 gm/dl (3.1-4.5); CREATININE 1.29 mg/dL (0.55-1.02); FREE T4 1.13 ng/dl (0.76-1.46); PHOSPHOROUS 3.4 mg/dL (2.5-4.9); POTASSIUM 5.3 mmol/L (3.5-5.1); TOTAL PROTEIN 6.5 gm/dL (6.4-8.2)
[2017-10-08 07:21] LABS: ACT PARTIAL THROMBO TIME 20.7 SECONDS (20.8-31.5)
[2017-10-08 07:23] LABS: THYROID STIM HORMONE (HS) 4.81 uIU/ml (0.358-4.75)
[2017-10-08 08:00] VITALS: BP 133/46
[2017-10-08 16:00] VITALS: BP 151/41
[2017-10-08 20:00] VITALS: BP 114/60; BP 136/45
[2017-10-09] VITALS: BP 143/55
[2017-10-09 07:29] LABS: CREATININE 1.29 mg/dL (0.55-1.02); POTASSIUM 5.1 mmol/L (3.5-5.1)
[2017-10-09 08:00] VITALS: BP 152/54
[2017-10-09 12:00] VITALS: BP 149/56
[2017-10-09 16:22] VITALS: BP 142/41
[2017-10-09 20:16] VITALS: BP 147/40
[2017-10-10 00:07] VITALS: BP 155/45
[2017-10-10 06:36] LABS: BASO % 0.5 % (0.0-1.0); EOS # 0.4 10*3/uL (0.0-0.4); EOS % 7.7 % (1.0-4.0); HEMATOCRIT 35.5 % (37.0-47.0); HEMOGLOBIN 10.9 g/dl (12.0-16.0); LYMPH # 1.3 10*3/uL (1.3-4.4); LYMPH % 23.2 % (27.0-41.0); MEAN CELL VOLUME 101.4 fl (81.0-99.0); MEAN CORPUSCULAR HGB 31.1 pg (27.0-31.0); MEAN CORPUSCULAR HGB CONC 30.7 g/dl (33.0-37.0); MEAN PLATELET VOLUME 9.7 fl (9.6-12.3); MONO # 0.6 10*3/uL (0.1-1.0); MONO % 11.1 % (3.0-9.0); NEUT # 3.3 10*3/uL (2.3-7.9); NEUT % 57.3 % (47.0-73.0); PLATELET COUNT AUTOMATED 170 10*3/uL (130-400); RED CELL DISTRI WIDTH 14.2 % (0-14.5); WHITE BLOOD COUNT 5.7 10*3/uL (4.8-10.8)
[2017-10-10 07:03] LABS: ALBUMIN 3.1 gm/dl (3.1-4.5); CREATININE 1.28 mg/dL (0.55-1.02); POTASSIUM 5.3 mmol/L (3.5-5.1); TOTAL PROTEIN 6.4 gm/dL (6.4-8.2)
[2017-10-10 08:00] VITALS: BP 153/45
[2017-10-10 12:00] VITALS: BP 176/84
[2017-10-10] MEDS ORDERED: MECLIZINE HCL25 M2 PO (15:32)
[2017-10-10 16:00] VITALS: BP 148/48
== END 2017-10-10 16:41 | disposition home health service (06) | DRG 439 ==
LOC: ED 09:13 → EDHOLD 10:46 → 5E 10:46
PROVIDERS: Emergency Medicine; Internal Medicine; Internal Medicine Hospice and Palliative Medicine; Student in an Organized Health Care Education/Training Program
DX: K85.90 Acute pancreatitis without necrosis or infection, unspecified (principal); N18.4 Chronic kidney disease, stage 4 (severe); E11.22 Type 2 diabetes mellitus with diabetic chronic kidney disease; E11.65 Type 2 diabetes mellitus with hyperglycemia; I50.32 Chronic diastolic (congestive) heart failure; I13.0 Hypertensive heart and chronic kidney disease with heart failure and stage 1 through stage 4 chronic kidney disease, or unspecified chronic kidney disease; L12.0 Bullous pemphigoid; R11.2 Nausea with vomiting, unspecified; E11.39 Type 2 diabetes mellitus with other diabetic ophthalmic complication; E87.5 Hyperkalemia; R10.10 Upper abdominal pain, unspecified; R42 Dizziness and giddiness; E66.01 Morbid (severe) obesity due to excess calories; D53.9 Nutritional anemia, unspecified; D72.810 Lymphocytopenia; E86.0 Dehydration; M19.90 Unspecified osteoarthritis, unspecified site; R74.8 Abnormal levels of other serum enzymes; H40.9 Unspecified glaucoma; E78.5 Hyperlipidemia, unspecified; Z96.653 Presence of artificial knee joint, bilateral; K21.9 Gastro-esophageal reflux disease without esophagitis; Z88.0 Allergy status to penicillin; Z91.048 Other nonmedicinal substance allergy status; Z79.899 Other long term (current) drug therapy; Z79.4 Long term (current) use of insulin; Z79.82 Long term (current) use of aspirin; Z86.718 Personal history of other venous thrombosis and embolism; Z90.49 Acquired absence of other specified parts of digestive tract; Z98.49 Cataract extraction status, unspecified eye; Z82.49 Family history of ischemic heart disease and other diseases of the circulatory system; Z83.6 Family history of other diseases of the respiratory system; Z80.8 Family history of malignant neoplasm of other organs or systems

== ENCOUNTER 2017-12-27 22:03 | Inpatient (IN) | payer MEDICARE ==
[~2017-12-27] VITALS: Ht 167.6 cm; Wt 116.3 kg
[~2017-12-27 22:03] MED LIST changes: +ASPIRIN325 MG PO; +KLOR-CON M2020 ME1 PO; +LANTUS SOL100 UNIT/1 SC; +MECLIZINE HCL25 M2 PO; +NIZATIDINE PO
[2017-12-27 22:07] VITALS: BP 158/52
[2017-12-28 01:15] VITALS: BP 162/74
[2017-12-28 01:26] LABS: BILIRUBIN NEGATIVE (NEGATIVE); BLOOD NEGATIVE (NEGATIVE); CLARITY CLEAR (CLEAR); COLOR YELLOW (YELLOW); GLUCOSE NEGATIVE (NEGATIVE); KETONE NEGATIVE (NEGATIVE); LEUKO ESTERASE NEGATIVE (NEGATIVE); NITRITE NEGATIVE (NEGATIVE); PH 6.5 (5.0-9.0); UROBILINOGEN 0.2 E.U./dl (0.2-1.0)
[2017-12-28 01:28] LABS: BASO # 0.1 10*3/uL (0.0-0.1); BASO % 0.7 % (0.0-1.0); EOS # 0.5 10*3/uL (0.0-0.4); EOS % 5.3 % (1.0-4.0); HEMATOCRIT 38.8 % (37.0-47.0); HEMOGLOBIN 11.6 g/dl (12.0-16.0); LYMPH # 1.5 10*3/uL (1.3-4.4); LYMPH % 16.9 % (27.0-41.0); MEAN CELL VOLUME 102.9 fl (81.0-99.0); MEAN CORPUSCULAR HGB 30.8 pg (27.0-31.0); MEAN CORPUSCULAR HGB CONC 29.9 g/dl (33.0-37.0); MEAN PLATELET VOLUME 9.6 fl (9.6-12.3); MONO # 1.1 10*3/uL (0.1-1.0); MONO % 11.9 % (3.0-9.0); NEUT # 5.7 10*3/uL (2.3-7.9); NEUT % 64.7 % (47.0-73.0); PLATELET COUNT AUTOMATED 236 10*3/uL (130-400); RED BLOOD COUNT 3.77 10*6/uL (4.10-5.10); RED CELL DISTRI WIDTH 14.8 % (0-14.5); WHITE BLOOD COUNT 8.8 10*3/uL (4.8-10.8)
[2017-12-28 01:32] LABS: BACTERIA TRACE
[2017-12-28 01:45] LABS: ALBUMIN 3.4 gm/dl (3.1-4.5); ALKALINE PHOSPHATASE 104 U/L (45-117); BUN 25 mg/dl (7-24); CHLORIDE 105 mmol/L (98-107); CREATININE 1.44 mg/dL (0.55-1.02); POTASSIUM 4.7 mmol/L (3.5-5.1); SGOT/AST 21 IU/L (3-35); SGPT/ALT 18 U/L (12-78); SODIUM 142 mmol/L (136-145); TOTAL PROTEIN 7.1 gm/dL (6.4-8.2)
[2017-12-28 01:47] LABS: TROPONIN I < 0.015 ng/ml (<0.045)
[2017-12-28 02:10] VITALS: BP 135/56
[2017-12-28 06:16] LABS: BASO # 0.1 10*3/uL (0.0-0.1); BASO % 0.7 % (0.0-1.0); EOS # 0.5 10*3/uL (0.0-0.4); EOS % 6.1 % (1.0-4.0); HEMATOCRIT 34.3 % (37.0-47.0); HEMOGLOBIN 10.5 g/dl (12.0-16.0); LYMPH # 1.4 10*3/uL (1.3-4.4); MEAN CELL VOLUME 102.7 fl (81.0-99.0); MEAN CORPUSCULAR HGB 31.4 pg (27.0-31.0); MEAN CORPUSCULAR HGB CONC 30.6 g/dl (33.0-37.0); MEAN PLATELET VOLUME 9.6 fl (9.6-12.3); MONO # 1.1 10*3/uL (0.1-1.0); MONO % 14.1 % (3.0-9.0); NEUT # 4.5 10*3/uL (2.3-7.9); NEUT % 59.7 % (47.0-73.0); PLATELET COUNT AUTOMATED 191 10*3/uL (130-400); RED BLOOD COUNT 3.34 10*6/uL (4.10-5.10); RED CELL DISTRI WIDTH 14.8 % (0-14.5); WHITE BLOOD COUNT 7.6 10*3/uL (4.8-10.8)
[2017-12-28 06:45] LABS: ALBUMIN 2.8 gm/dl (3.1-4.5); CREATININE 1.39 mg/dL (0.55-1.02); FREE T4 1.09 ng/dl (0.76-1.46); PHOSPHOROUS 3.1 mg/dL (2.5-4.9); POTASSIUM 4.4 mmol/L (3.5-5.1); TOTAL PROTEIN 5.9 gm/dL (6.4-8.2)
[2017-12-28 06:47] LABS: ACT PARTIAL THROMBO TIME 22.5 SECONDS (20.8-31.5)
[2017-12-28 06:49] LABS: THYROID STIM HORMONE (HS) 5.91 uIU/ml (0.358-4.75)
[2017-12-28 08:00] VITALS: BP 116/38
[2017-12-28] MEDS ORDERED: ASPIR-TRIN325 MG PO (11:36)
[2017-12-28] MEDS ORDERED: KLOR-CON M2020 ME1 PO (11:40)
[2017-12-28] MEDS ORDERED: VITAMIN E400 UNI2 PO (11:51)
[2017-12-28] MEDS ORDERED: LANTUS SOL100 UNIT/1 SQ (11:53)
== END 2017-12-28 16:15 | disposition short-term general hospital (02) | DRG 562 ==
LOC: ED 22:03 → 4E 12-28 01:07 → EDHOLD 12-28 01:07 → 4E 12-28 01:17
PROVIDERS: Emergency Medicine Emergency Medical Services; Internal Medicine Hospice and Palliative Medicine
DX: S82.842A Displaced bimalleolar fracture of left lower leg, initial encounter for closed fracture (principal); N17.0 Acute kidney failure with tubular necrosis; E44.0 Moderate protein-calorie malnutrition; E11.22 Type 2 diabetes mellitus with diabetic chronic kidney disease; D72.1 Eosinophilia; N18.4 Chronic kidney disease, stage 4 (severe); I50.32 Chronic diastolic (congestive) heart failure; I13.0 Hypertensive heart and chronic kidney disease with heart failure and stage 1 through stage 4 chronic kidney disease, or unspecified chronic kidney disease; E66.01 Morbid (severe) obesity due to excess calories; I45.10 Unspecified right bundle-branch block; Z96.653 Presence of artificial knee joint, bilateral; H40.9 Unspecified glaucoma; M19.90 Unspecified osteoarthritis, unspecified site; D72.810 Lymphocytopenia; D53.9 Nutritional anemia, unspecified; W18.09XA Striking against other object with subsequent fall, initial encounter; Y93.01 Activity, walking, marching and hiking; Y92.098 Other place in other non-institutional residence as the place of occurrence of the external cause; Z88.0 Allergy status to penicillin; Z88.9 Allergy status to unspecified drugs, medicaments and biological substances; Z86.718 Personal history of other venous thrombosis and embolism; Y99.8 Other external cause status; Z90.49 Acquired absence of other specified parts of digestive tract; Z98.49 Cataract extraction status, unspecified eye; Z82.49 Family history of ischemic heart disease and other diseases of the circulatory system; Z83.6 Family history of other diseases of the respiratory system; Z80.8 Family history of malignant neoplasm of other organs or systems; Z79.4 Long term (current) use of insulin; Z68.39 Body mass index [BMI] 39.0-39.9, adult